=== PATIENT | female | born 1950 | race Caucasian/White ===

== ENCOUNTER 2017-05-30 20:17 | Emergency (ER) | payer MEDICARE, MEDICAID ==
[~2017-05-30 20:17] MED LIST: AMLO10 PO; ASPI325T PEG; IRONCAP2 PO; LACT PEG; LEVEMIR SQ; LISI20 PEG; METR-1 PEG; NOVOLOGP2 SQ; NOVOLOGSS SQ; PRAV40 DOBHOFF; PROT40TA PO; PROV200T11 PO; WATER G-TUBE
[2017-05-30 20:32] VITALS: BP 142/63; PULSE 75; RESP 18; TEMP 98.8; O2SAT 97
--- NOTE | 2017-05-30 20:35 | PD ---
HPI Chief Complaint: Dislodged PEG tube Time Seen by Provider: 20:28 Travel History International Travel<30 days: No Contact w/Intl Traveler<30days: No Traveled to known affect area: No History of Present Illness HPI 66-year-old female brought in by ambulance from her [facility] after she pulled out her PEG tube at around 7:00 PM. Patient has history of CVA. She is unable to provide any further history, and this is apparently her baseline mental status. PFSH Past Medical History Anemia: Yes Asthma: No Depression: Yes Heart Rhythm Problems: No Cancer: No Cardiovascular Problems: Yes High Cholesterol: No Chest Pain: No Congestive Heart Failure: No COPD: No Cerebrovascular Accident: Yes (STROKE ALERT ) Endocrine: No GERD: No Genitourinary: No Hiatal Hernia: No Hypertension: Yes Musculoskeletal: No Neurologic: Yes (stroke alert on 10/09/15 @2107) Psychiatric: No Reproductive: No Respiratory: Yes (CHRONIC BRONCHITIS) Immunizations Current: No (UTO) Migraines: No Seizures: No Sleep Apnea: No Ulcer: Yes Menopausal: Yes : 4 Para: 3 Miscarriage: 1 Dilation and Curettage (D&C): Yes Past Surgical History Abdominal Surgery: No Cardiac Surgery: No Section: Yes Ear Surgery: No Endocrine Surgery: No Eye Surgery: Yes (CATARACT) Genitourinary Surgery: No Gynecologic Surgery: No Oral Surgery: No Thoracic Surgery: No Other Surgery: Yes (, ULCER REPAIR, RIGHT CATARACT REMOVAL) Social History Alcohol Use: Yes (WINE OCCASIONALLY) Tobacco Use: No Substance Use: No Allergies-Medications (Allergen,Severity, Reaction): Coded Allergies: Wheat Flour (Unverified Allergy, Severe, Cramping, 10/09/15) Reported Meds & Prescriptions Reported Meds & Active Scripts Active Reported Nuedexta 20-10 mg (Dextromethorphan HBr-Quinidine) 1 Cap Cap 1 Cap PEG BID Nystatin 1 Each Powder.ea. TOPICAL TID Lorazepam 1 Mg Tab 1 Mg PO Q6H PRN Ferrous Sulfate 12.5 Mg/0.83 Ml Syringe 7.5 Ml PEG DAILY Novolog Inj (Insulin Aspart) 1,000 Unit/10 Ml Vial 0 SQ DIRECTED Sliding Scale as directed. Ibuprofen 200 Mg Cap 200 Mg PEG Q6H PRN Aspirin 325 Mg Tab 325 Mg PEG DAILY Amlodipine (Amlodipine Besylate) 10 Mg Tab 10 Mg PEG DAILY Levemir Inj (Insulin Detemir) 1,000 unit/ 10 ML Vial 10 Units SQ DAILY Do not mix with any other Insulin. Pravastatin 40 Mg Tab 40 Mg PEG DAILY Modafinil 100 Mg Tab 100 Mg PEG DAILY Methylphenidate IR (Methylphenidate HCl) 5 Mg Tab 5 Mg PEG BIDAC Lisinopril 20 Mg Tab 20 Mg PEG DAILY Review of Systems Except as stated in HPI: all other systems reviewed are Neg Physical Exam Narrative GENERAL: Well-developed, well-nourished, no apparent distress. SKIN: Focused skin assessment warm/dry. LUNGS: CTAB HEART: RRR GASTROINTESTINAL: Abdomen soft, non-tender, nondistended. Left upper quadrant with small hole/ostomy were feeding tube was, no feeding tube in place. NEUROLOGICAL: Awake and alert. Data Data Last Documented VS Vital Signs Date Time Temp Pulse Resp B/P Pulse Ox O2 Delivery O2 Flow Rate FiO2 05/30/17 20:32 98.8 75 18 142/63 97 Orders Abdomen, Single View (05/30/17 ) Diatrizoate Liq ( Gastroview Liq) (05/30/17 21:29) MDM Medical Decision Making Medical Screen Exam Complete: Yes Emergency Medical Condition: Yes Differential Diagnosis Dislodged PEG tube Narrative Course PEG tube replaced with an 18 Irish tube. Postplacement x-ray shows good positioning of the tube. Patient will be discharged back to her [facility]. Procedures Procedure Narrative PEG tube replacement: Sterile 18 Irish PEG tube was replaced and the patient's left upper quadrant ostomy. Small amount of lubricant jelly was used. Sterile dressing applied. Tolerated well. No complications. Diagnosis Primary Impression: Complication of feeding tube Referrals: Primary Care Physician 3 days Disposition: 01 DISCHARGE HOME Condition: Stable Nick Wise MD May 30, 2017 20:35
[2017-05-30] MEDS ORDERED: NOVOLOGP2 SQ (21:03)
[2017-05-30] MEDS ORDERED: LORA1TAB12 PO (21:03)
[2017-05-30] MEDS ORDERED: LEVEMIR SQ (21:03)
[2017-05-30] MEDS ORDERED: FERR15DR9 PEG (21:03)
[2017-05-30] MEDS ORDERED: METH5TAB7 PEG (21:03)
[2017-05-30] MEDS ORDERED: PRAV40TA2 PEG (21:03)
[2017-05-30] MEDS ORDERED: MODA100T9 PEG (21:03)
[2017-05-30] MEDS ORDERED: NYSTPOW TOPICAL (21:03)
[2017-05-30] MEDS ORDERED: ASPI325T PEG (21:03)
[2017-05-30] MEDS ORDERED: LISI-515 PEG (21:03)
[2017-05-30] MEDS ORDERED: AMLO10TA2 PEG (21:03)
[2017-05-30] MEDS ORDERED: IBUP200C PEG (21:03)
[2017-05-30] MEDS ORDERED: NUED20CA PEG (21:03)
[2017-05-30] MEDS ORDERED: DIATRIZOATE MEGLUM/DIATRIZOATE SOD 120 ML BTL (for RAD DIAG) PEG ONE (21:29)
--- NOTE | 2017-05-30 21:29 | RADRPT ---
EXAM DATE/TIME: 05/30/2017 20:49 [facility] COMPARISON: ABDOMEN SINGLE VIEW, May 03, 2016, 15:43. INDICATIONS : PEG tube placement MEDICAL HISTORY : Hypertension.Vertigo. Gastric ulcer SURGICAL HISTORY : section. Cataract surgery. EGD. PEG tube placement. ENCOUNTER: Initial ACUITY: 1 day PAIN SCORE: Non-responsive. LOCATION: Left upper quadrant FINDINGS: Gastrostomy tube appears in good position there is moderate reflux into the hernia. CONCLUSION: Tube in good position. Mike Milton MD FACR on May 30, 2017 at 21:27 Board Certified Radiologist. This report was verified electronically.
[2017-05-31] MEDS ORDERED: LORazepam 1 MG TAB PEG ONE (00:15)
[2017-05-31 07:31] VITALS: BP 133/60; PULSE 69; RESP 13; TEMP 98; O2SAT 93
== END 2017-05-31 09:35 ==
LOC: NEPD 20:17
DX: Z43.1 Encounter for attention to gastrostomy (principal); D64.9 Anemia, unspecified; F32.9 Major depressive disorder, single episode, unspecified; I10 Essential (primary) hypertension; Z86.73 Personal history of transient ischemic attack (TIA), and cerebral infarction without residual deficits; Z79.4 Long term (current) use of insulin; Z79.899 Other long term (current) drug therapy; Z79.82 Long term (current) use of aspirin
CPT/HCPCS: 43760; 74000; 99284; Q9963